=== PATIENT | female | born 1960 | race Caucasian/White ===

== ENCOUNTER 2018-07-05 10:42 | Day surgery (SDC) | payer OTHER ==
[2018-07-01 09:01] VITALS: BMI 31.3
[~2018-07-05 10:42] MED LIST: LACTATED RINGERS 1,000 ML IV SCH
[2018-07-05 11:15] VITALS: RESP 16; TEMP 98.7
[2018-07-05] MEDS ORDERED: LIDOCAINE 1% 20 ML VIAL (10MG/ML) FOR IV START INTRADERMA ONE (11:22)
[2018-07-05] MEDS ORDERED: LIDOCAINE 1% INJ 10MG/ML (20 ML MDV) ONE (11:39)
[2018-07-05] MEDS ORDERED: fentaNYL (PF) 50 MCG/ML 2 ML AMP ONE (11:39)
[2018-07-05] MEDS ORDERED: PROPOFOL 10 MG/ML 20 ML VIAL IV ONE (11:39)
--- NOTE | 2018-07-05 12:08 | P.PCN ---
Date of Procedure: 07/05/18 Procedure(s) Performed: Procedure: Esophagogastroduodenoscopy and biopsy. Preoperative diagnosis: Dysphagia and suspected esophageal stricture. Postoperative diagnosis: 1. Sliding hiatal hernia and grade C distal esophagitis but no strictures or Temple's esophagus. 2. Mild gastritis and duodenitis. Preparation and sedation: Was provided by anesthesia. Brief clinical history: The patient is a 58-year-old female with chronic reflux symptoms for which she was self-medicating with baking soda. The patient has been having issues with swallowing pills but no other alarm symptoms. She was advised an upper endoscopy around 3 years ago but she didn't follow through on that. This evaluation is to assess for esophagitis, complicated reflux disease or other pathology. Procedure: With the patient on her left lateral decubitus position and after informed consent and adequate sedation, I passed the Olympus-GIF 160 video upper endoscope through the cricopharyngeus down the esophagus. GE junction was around 36 cm from the incisors and there was a 2 cm sliding hiatal hernia. The distal esophagus showed multiple short erosions and linear ulcerations terminating at the level of the GE junction but there were no strictures or Temple's esophagus. The endoscope was then passed into the stomach which was insufflated with air and inspected in detail including the retroflex view in the cardia. There was some mottling and erythema in the antrum but no ulcers or erosions. Pyloric channel did not show any ulcers. Duodenal bulb, post bulbar area and descending duodenum showed some erythema but no ulcers or bleeding. I obtained biopsies from the duodenum, antrum and esophagus then the endoscope was withdrawn. The patient tolerated the procedure well. Plan: The patient was reassured. She will continue antireflux diet and measures and H2 blockers which you have started her on. If she does not have a sustained improvement, an 8-12 weeks period of PPI can be considered. Further plans can be made based on her course and biopsy results. I will be happy to see her in the office if her symptoms persist or recur. She will follow-up with you as planned.
[2018-07-05 12:18] VITALS: BP 119/85; PULSE 53
== END 2018-07-05 12:45 | disposition home or self-care (01) ==
LOC: ORWHC2ENDO 10:42
DX: K29.50 Unspecified chronic gastritis without bleeding (principal); K29.80 Duodenitis without bleeding; K21.0 Gastro-esophageal reflux disease with esophagitis; K44.9 Diaphragmatic hernia without obstruction or gangrene; J45.909 Unspecified asthma, uncomplicated; F31.9 Bipolar disorder, unspecified; Z79.51 Long term (current) use of inhaled steroids; Z79.899 Other long term (current) drug therapy
CPT/HCPCS: 88305; 43239; J2001; J3010; J2704

== ENCOUNTER → 2018-12-13 | Outpatient (CLI) | payer OTHER ==
--- NOTE | 2018-12-13 16:34 | US ---
EXAMINATION TYPE: US transvaginal DATE OF EXAM: 12/13/2018 COMPARISON: NONE CLINICAL HISTORY: N89.8 other specified noninflammatory disorders of. Patient complains of blood ting ed discharge x 2 weeks. Postmenopausal singe age 47. No complaints of pain. TECHNIQUE: Transvaginal (TV). Transvaginal sonographic images were medically necessary to better as sess the following anatomy: Date of LMP: age 47 EXAM MEASUREMENTS: Uterus: 6.81 x 4.2 x 2.8 cm Endometrial Stripe: 0.7 cm Right Ovary: 1.5 x 1.1 x 0.9 cm Left Ovary: 1.6 x 1.1 x 0.8 cm 1. Uterus: Anteverted hypoechoic,debris in cervix, right sided solid mass to right of cervix. ? ov garcía, ? pedunculated from uterus = 3.7 x 3.7 x 3.0 cm, seen with minimal vascularity. 2. Endometrium: thickened with internal echos throughout 3. Right Ovary: ? wnl 4. Left Ovary: wnl 5. Bilateral Adnexa: wnl 6. Posterior cul-de-sac: wnl IMPRESSION: 1. Debris filled endometrium. 2. Possible pedunculated uterine fibroid measuring 3.7 cm in diameter. Consider CT for additional wor kup.
== END | disposition home or self-care (01) ==
LOC: RADUSWWP 07:28
PROVIDERS: ATTEND Family Medicine
DX: N89.8 Other specified noninflammatory disorders of vagina (principal)
CPT/HCPCS: 76830

== ENCOUNTER → 2018-12-30 | Outpatient (CLI) | payer OTHER ==
--- NOTE | 2018-12-30 13:41 | MR ---
EXAMINATION TYPE: MR pelvis wo/w con DATE OF EXAM: 12/30/2018 COMPARISON: Transvaginal ultrasound December 13, 2018 HISTORY: Leiomyoma of uterus CONTRAST: Standard multiplanar, multisequence MRI departmental protocol utilizing 9 mL intravenous Gadavist halley olinium contrast. Imaging is performed of the pelvis. FINDINGS: There is redemonstration of anteverted uterus which appears normal in size. No suspicious t hickening of the endometrial canal is identified. From the lower uterine segment extending to the rig ht of midline there is round well-defined lesion of T1 and T2 hypointensity isointense to the uterine myometrium with heterogeneous enhancement measuring 3.9 x 3.3 cm axial image 14 x 3.2 cm craniocauda l dimension sagittal image 23 with indistinct margin from the adjacent uterus favoring subserosal or pedunculated fibroid. There is some mass effect on the right aspect of the lower uterine segment ching g right lateral aspect. No free fluid is seen in pelvic cul-de-sac. Left ovary is seen and normal in size in the adnexa axial image 14. Right ovary is not definitively s een in the right pelvis, it may be present axial image 19 but this is immediately adjacent to a dista l ileal loop the pelvis. I do suspect this likely reflects normal size right ovary. Remainder of study shows no suspicious pelvic adenopathy. Urinary bladder is felt within normal limit s. Visualized osseous structures show degenerative changes lumbosacral junction with disc space narro wing, subtle spondylolisthesis, and endplate changes. IMPRESSION: As above, well-defined pedunculated lesion from the lower aspect right uterine segment near cervical junction favors pedunculated or subserosal fibroid as it is isointense on all sequences to the uterin e myometrium. Because right ovary is not definitively seen with certainty, right ovarian neoplasm fel t much less likely but not entirely excluded. Would consider correlating with tumor markers to be saf e. When consider short-term pelvic MRI follow-up in 6 months time to reassess.
== END | disposition home or self-care (01) ==
LOC: RADMRIMAIN 11:04
PROVIDERS: ATTEND Family Medicine
DX: N85.9 Noninflammatory disorder of uterus, unspecified (principal)
CPT/HCPCS: 72197; A9585

== ENCOUNTER 2019-08-16 07:35 | Day surgery (SDC) | payer OTHER ==
[2019-08-11 11:04] VITALS: BMI 30.2
[~2019-08-16 07:35] MED LIST changes: -LACTATED RINGERS 1,000 ML IV SCH; +LIDOCAINE 1% 20 ML VIAL (10MG/ML) FOR IV START INTRADERMA PRN
[2019-08-16 08:06] VITALS: RESP 18; TEMP 98.2
[2019-08-16] MEDS: LACTATED RINGERS 1,000 ML IV SCH ×2 (08:19→08:20)
[2019-08-16] MEDS ORDERED: PROPOFOL 10 MG/ML 20 ML VIAL IV ONE (08:21)
--- NOTE | 2019-08-16 08:52 | P.PCN ---
Date of Procedure: 08/16/19 Description of Procedure: BRIEF HISTORY: Patient is a 59-year-old uheuaoze-pyqj-dic female scheduled for an elective colonoscopy as a part of screening for malignant neoplasm of the colon. Patient believes last colonoscopy was approximately 10 years ago normal. Denies any change in bowel habits, blood per rectum or regular abdominal pain. No family history of colon cancer reported. PROCEDURE PERFORMED: Colonoscopy. PREOPERATIVE DIAGNOSIS: Screening for malignant neoplasm of the colon, last colonoscopy 10 years ago per the patient's recollection and normal. ESTIMATED BLOOD LOSS: Minimal. IV sedation per Anesthesia. PROCEDURE: After informed consent was obtained, the patient, was brought into the endoscopy unit. IV sedation was administered by Anesthesia under continuous monitoring. Digital rectal examination was normal. Initially the Olympus CF-190 flexible v ideo colonoscope was then inserted in the rectum and then the sigmoid colon where the colon became somewhat tortuous at this time the colonoscope was removed and switched for a pediatric colonoscope which was then inserted into the rectum, gradually advanced into the cecum without any difficulty. Careful examination was performed as the scope was gradually being withdrawn. Ileocecal valve and the appendiceal orifice were visualized and appeared normal. Prep was excellent. Mucosa of the cecum, ascending colon, transverse colon, descending colon, sigmoid colon, and rectum appeared normal. Retroflexion was performed in the rectum and no lesions were seen, mild internal hemorrhoids noted. The patient tolerated the procedure well. IMPRESSION: Normal-appearing colon from rectum to cecum. RECOMMENDATIONS: Findings of this examination were discussed with the patient and her . Okay to resume diet. Okay to resume medications. Recommend repeat colonoscopy in 10 years for screening purposes, or sooner if any signs or symptoms would warrant further evaluation develop.
[2019-08-16 08:53] VITALS: PULSE 60
[2019-08-16 09:12] VITALS: BP 127/76
== END 2019-08-16 09:46 | disposition home or self-care (01) ==
LOC: ORWHC2ENDO 07:35
PROVIDERS: ATTEND Internal Medicine
DX: Z12.11 Encounter for screening for malignant neoplasm of colon (principal); K64.8 Other hemorrhoids; J45.909 Unspecified asthma, uncomplicated; E66.9 Obesity, unspecified; F31.9 Bipolar disorder, unspecified; K21.9 Gastro-esophageal reflux disease without esophagitis; Z91.09 Other allergy status, other than to drugs and biological substances; Z79.51 Long term (current) use of inhaled steroids; Z79.899 Other long term (current) drug therapy; Z68.30 Body mass index [BMI] 30.0-30.9, adult; Z80.6 Family history of leukemia; Z98.890 Other specified postprocedural states
CPT/HCPCS: J2704; G0121

== ENCOUNTER → 2019-08-22 | Outpatient (CLI) | payer OTHER ==
--- NOTE | 2019-08-23 05:22 | MR ---
EXAMINATION TYPE: MR pelvis wo/w con DATE OF EXAM: 08/22/2019 COMPARISON: 12/30/2018 HISTORY: inra abdominal and pelvic swelling, F/U CONTRAST: Standard multiplanar, multisequence MRI departmental protocol utilizing 8.5 mL intravenous Gadavist g adolinium contrast. FINDINGS: Uterus is anteverted and measures 6.5 cm in length. Bladder distends smoothly. There is no evidence of a bladder mass. Endometrium is not thickened. There is a rounded 3.5 cm sharply marginated mass that appears to be arising from the posterior aspec t of the lower uterine segment. This is consistent with a large fibroid. The mass has low signal on T 2 and intermediate signal on T1 images. There is no pelvic lymphadenopathy. The visualized bony structures appear intact. Sacroiliac joints a ppear normal. Sacral segments have normal alignment. There is degenerative disc space narrowing at L5 -S1. Uterine mass enhances equally with the body of the uterus. I see no pelvic lymphadenopathy. Ther e is no evidence of inguinal hernia. There is no sign of a bowel obstruction. There is no free fluid in the pelvis. IMPRESSION: Exophytic mass on the posterior lower uterine segment consistent with a fibroid unchanged compared to previous exam.
== END | disposition home or self-care (01) ==
LOC: RADMRIMAIN 08:08
PROVIDERS: ATTEND Family Medicine
DX: N85.8 Other specified noninflammatory disorders of uterus (principal); R19.00 Intra-abdominal and pelvic swelling, mass and lump, unspecified site
CPT/HCPCS: 72197; A9585

== ENCOUNTER → 2020-04-27 | Outpatient (CLI) | payer OTHER | END | disposition home or self-care (01) | LOC: LABWHC1 09:58 | PROVIDERS: ATTEND Family Medicine | DX: R11.2 Nausea with vomiting, unspecified (principal) ==

== ENCOUNTER → 2024-03-04 | Outpatient (CLI) | payer OTHER ==
--- NOTE | 2024-03-04 09:21 | XR ---
EXAMINATION TYPE: XR chest 2V DATE OF EXAM: 03/04/2024 COMPARISON: 05/12/2012 HISTORY: 63-year-old female worsening asthma. J45.20 MILD INTERMITTENT ASTHMA, UNCOMPLICATED TECHNIQUE: Frontal and lateral views FINDINGS: Heart is normal size. Aorta and pulmonary vasculature within normal limits. There is a focal anterior midlung opacity on the lateral view, possible underlying nodularity for which further CT evaluation can be performed. Mild degenerative disc disease midthoracic spine. No other consolidation or pleural effusion. IMPRESSION: Some focal density anterior mid lung on the lateral view; slightly nodular appearance. CT to exclude a suspicious underlying pulmonary nodule.
== END | disposition home or self-care (01) ==
LOC: RADXRMAIN 07:46
PROVIDERS: ATTEND Family Medicine
DX: J45.20 Mild intermittent asthma, uncomplicated (principal)
CPT/HCPCS: 71046

== ENCOUNTER → 2024-03-24 | Outpatient (CLI) | payer OTHER ==
--- NOTE | 2024-03-24 17:27 | CA ---
Transthoracic Echo Report Name: Erika Short Age: 64 Gender: F : 1960 Exam Date: 03/24/2024 14:33 Exam Location: [facility] Ht (in): 56 Wt (lb): 163 Ordering Physician: Joce Jackman DO Attending/Referring Phys: Car Record Clerk Reema Steele RDCS Procedure CPT: Indications: I31.39 OTHER PERICARDIAL EFFUSION (NONINFLAMMATORY Cardiac Hx: Technical Quality: Good Contrast 1: Total Dose (mL): Contrast 2: Total Dose (mL): MEASUREMENTS (Male / Female) Normal Values 2D ECHO LV Diastolic Diameter PLAX 4.5 cm 4.2 - 5.9 / 3.9 - 5.3 cm LV Systolic Diameter PLAX 3.0 cm IVS Diastolic Thickness 0.8 cm 0.6 - 1.0 / 0.6 - 0.9 cm LVPW Diastolic Thickness 0.9 cm 0.6 - 1.0 / 0.6 - 0.9 cm LV Relative Wall Thickness 0.4 RV Internal Dim ED PLAX 3.3 cm LVOT Diameter 2.0 cm LV Diastolic Volume MOD BP 91.4 cm??? 67 - 155 / 56 - 104 cm??? LV Systolic Volume MOD BP 28.9 cm??? 22 - 58 / 19 - 49 cm??? LV Ejection Fraction MOD BP 68.3 % >= 55 % LV Cardiac Index MOD BP 2601.6 cm???/min???m??? LV Diastolic Volume MOD 4C 83.9 cm??? LV Systolic Volume MOD 4C 30.2 cm??? LV Ejection Fraction MOD 4C 64.1 % LV Cardiac Index MOD 4C 2238.8 cm???/min???m??? LV Diastolic Length 4C 7.5 cm LV Systolic Length 4C 6.3 cm LV Diastolic Volume MOD 2C 93.2 cm??? LV Systolic Volume MOD 2C 27.3 cm??? LV Ejection Fraction MOD 2C 70.7 % LV Cardiac Index MOD 2C 2745.7 cm???/min???m??? LV Diastolic Length 2C 8.1 cm LV Systolic Length 2C 6.1 cm LA Volume 54.1 cm??? 18 - 58 / 22 - 52 cm??? LA Volume Index 30.9 cm???/m??? 16 - 28 cm???/m??? Ascending Aorta Diameter 3.3 cm DOPPLER AV Peak Velocity 136.1 cm/s AV Peak Gradient 7.4 mmHg AV Mean Velocity 87.7 cm/s AV Mean Gradient 3.7 mmHg AV Velocity Time Integral 28.2 cm LVOT Peak Velocity 120.0 cm/s LVOT Peak Gradient 5.8 mmHg LVOT Velocity Time Integral 26.0 cm LVOT Stroke Volume 83.2 cm??? LVOT Stroke Volume Index 51.1 ml/m??? LVOT Cardiac Index 3467.1 cm???/min???m??? AV Area Cont Eq vti 2.9 cm??? AV Area Cont Eq pk 2.8 cm??? MV Area PHT 3.2 cm??? Mitral E Point Velocity 52.0 cm/s Mitral A Point Velocity 57.0 cm/s Mitral E to A Ratio 0.9 MV Deceleration Time 234.6 ms TR Peak Velocity 201.7 cm/s TR Peak Gradient 16.3 mmHg Right Atrial Pressure 5.0 mmHg Pulmonary Artery Systolic Pressu 21.3 mmHg Right Ventricular Systolic Press 21.3 mmHg PV Peak Velocity 89.0 cm/s PV Peak Gradient 3.2 mmHg FINDINGS Left Ventricle Left ventricular ejection fraction is estimated at 60-65 %. Left ventricular cavity size normal. Left ventricular wall thickness normal. No obvious regional wall motion abnormalities. Right Ventricle Right ventricular systolic pressure within normal limits. Right ventricular systolic pressure within normal limits. Right Atrium Normal right atrial size. Left Atrium Mildly increased left atrial volume. Mitral Valve Structurally normal mitral valve. No evidence for mitral valve prolapse. No mitral stenosis. Mild mitral regurgitation. Aortic Valve Trileaflet aortic valve. No aortic valve stenosis. Trace aortic regurgitation. Tricuspid Valve Structurally normal tricuspid valve. No tricuspid stenosis. Trace tricuspid regurgitation. Pulmonic Valve Structurally normal pulmonic valve. No pulmonic stenosis. Trace pulmonic regurgitation. Pericardium No pericardial effusion. Aorta Normal size aortic root and proximal ascending aorta. CONCLUSIONS Normal LV function Previewed by: Dr. Yang Almanzar MD (Electronically Signed) Final Date: 24 March 2024 17:26
== END | disposition home or self-care (01) ==
LOC: RADECHMAIN 14:27
PROVIDERS: ATTEND Family Medicine
DX: I31.39 Other pericardial effusion (noninflammatory) (principal)
CPT/HCPCS: 93306